=== PATIENT | female | born 1995 | race Caucasian/White ===

== ENCOUNTER 2024-05-24 21:59 | Emergency (ER) | payer OTHER ==
[~2024-05-24] VITALS: Ht 160 cm; Wt 77.1 kg
[2024-05-24 22:03] VITALS: PULSE 91; RESP 18; TEMP 98.5; O2SAT 95
[2024-05-24] MEDS: LIDOCAINE 1% 10 ML MULTIDOSE VIAL IJ ONE (22:58)
[2024-05-24] MEDS: BACITRACIN ZINC 0.9GM TP ONE (22:58)
[2024-05-24] MEDS: TETANUS/DIPHTHERIA TOX ADULT 0.5 ML SYR IM ONE (23:03)
== END 2024-05-24 23:05 | disposition home or self-care (01) ==
LOC: FSED 22:02
DX: S61.212A Laceration without foreign body of right middle finger without damage to nail, initial encounter (principal); W26.0XXA Contact with knife, initial encounter; Y92.019 Unspecified place in single-family (private) house as the place of occurrence of the external cause
CPT/HCPCS: 90471; 90714; 99283

== ENCOUNTER 2024-06-01 12:44 | Emergency (ER) | payer SELFPAY ==
[~2024-06-01] VITALS: Ht 160 cm; Wt 77.1 kg
[2024-06-01 12:44] VITALS: PULSE 99; RESP 18; TEMP 97.3
[2024-06-01 14:54] VITALS: BP 121/62; PULSE 18; RESP 19; TEMP 98.3; O2SAT 100
== END 2024-06-01 13:07 | disposition home or self-care (01) ==
LOC: FSED 12:48
DX: Z48.02 Encounter for removal of sutures (principal)
CPT/HCPCS: 99283